=== PATIENT | female | born 1940 | race Caucasian/White ===

== ENCOUNTER → 2017-02-03 | Outpatient (CLI) | payer MEDICARE ==
[~2017-02-03] MED LIST: MOBIC7.5 MG PO; NORCO 5-325 TA1 EACH PO; Synthroid,Levo50 MCG PO; ZANTAC 150150 MG PO
== END | disposition home or self-care (01) ==
LOC: MAMMO 13:00
DX: Z12.31 Encounter for screening mammogram for malignant neoplasm of breast (principal)

== ENCOUNTER → 2018-04-20 | Outpatient (CLI) | payer MEDICARE | END | disposition home or self-care (01) | LOC: RAD 13:00 | DX: Z13.820 Encounter for screening for osteoporosis (principal); M81.0 Age-related osteoporosis without current pathological fracture; M25.561 Pain in right knee; Z78.0 Asymptomatic menopausal state ==